=== PATIENT | male | born 1995 | race Caucasian/White ===

== ENCOUNTER 2017-11-03 13:02 | Emergency (ER) | payer OTHER ==
[2017-11-03] MEDS ORDERED: Lidocaine 1% 20 ML MDV INJECT ONE ×2 (13:04→13:21)
--- NOTE | 2017-11-03 13:07 | EDM.PDOC ---
ED HPI GENERAL MEDICAL PROBLEM - General Stated Complaint: CUT TO LIP WORK RELATED Time Seen by Provider: 11/03/17 13:05 Source of Information: Reports: Patient History Limitations: Reports: No Limitations - History of Present Illness INITIAL COMMENTS - FREE TEXT/NARRATIVE: HISTORY AND PHYSICAL: History of present illness: Patient is a 22-year-old male who presents to the emergency room today with complaints of facial/head injury after being hit with a PVC pipe. He said while at work there was a PVC pipe that came towards him and did hit him in the face. He does have a laceration to the left upper lip increase of the left knee are. He denies any loss of consciousness. Change in vision, headache, near syncopal, nausea, vomiting. Besides the face he did not have any other extremity or body part involvement. Review of systems: As per history of present illness and below otherwise all systems reviewed and negative. Past medical history: As per history of present illness and as reviewed below otherwise noncontributory. Surgical history: As per history of present illness and as reviewed below otherwise noncontributory. Social history: No reported history of drug or alcohol abuse. Family history: As per history of present illness and as reviewed below otherwise noncontributory. Physical exam: General: Well-developed and well-nourished 22-year-old male. Alert and oriented. Nontoxic appearing and in no acute distress. HEENT: Atraumatic, normocephalic, pupils equal and reactive bilaterally, negative for conjunctival pallor or scleral icterus, mucous membranes moist, throat clear, neck supple, nontender, trachea midline. No drooling or trismus noted. No meningeal signs Lungs: Clear to auscultation, breath sounds equal bilaterally, chest nontender. Heart: S1S2, regular rate and rhythm without overt murmur Abdomen: Soft, nondistended, nontender. Negative for masses or hepatosplenomegaly. Negative for costovertebral tenderness. Pelvis: Stable nontender. Genitourinary: Deferred. Rectal: Deferred. Skin: 2 cm laceration to the left upper lip that does extend 0.2cm across the [place]. This laceration does not extend into the oral mucosa area and he does have an abrasion to the left naris fold which is nonsuturable. No lesions or rashes noted. Extremities: Atraumatic, negative for cords or calf pain. Neurovascular unremarkable. Neuro: Awake, alert, oriented. Cranial nerves II through XII unremarkable. Cerebellum unremarkable. Motor and sensory unremarkable throughout. Exam nonfocal. Notes: Area was anesthetized with 1% lidocaine. It was cleansed with chlorhexidine and normal saline. Wound was explored. No foreign body or debris noted. It does not extend into the inner oral mucosa. The laceration does extend into the vermilion border just slightly. I was able to match the vermilion border with 5- 0 nylon. #3 interrupted sutures were placed. Patient tolerated well. Bacitracin ointment applied. Wound care was addressed. Signs and symptoms of infection were reviewed and discussed. Head and maxillofacial CT results are pending. CT of the face and head show no acute intracranial findings. There is a mildly displaced fracture of the left maxillary frontal process and a nondisplaced fracture of the left nasal bone. Dr Victor was consulted on this case for need for close follow up. Dr. Severino was consult did on this case and would like to see the patient in 7- 10 days. I did share this with the patient and we discussed signs and symptoms that would prompt him to return to the emergency room which includes but is not limited to fever, chills, pain and pressure. We'll place him on Augmentin twice a day 10 days. [place] as needed for pain. Diagnostics: Head CT, Maxillofacial CT Therapeutics: Lidocaine, wound care, bacitracin Impression: Head injury Facial laceration Facial bone fracture Plan: 1. Please keep the area clean and dry. Stitches to be removed in 7-10 days. Continue to monitor for signs of infection. 2. Tylenol and/or ibuprofen as needed for pain management. [place] as needed for moderate to severe pain. This medication may cause drowsiness a do not take it while driving or needing to be functioning outside of the house. 3. Review the head injury instructions that were reviewed with you and are printed in your discharge packet 4. As we discussed you do have facial fractures which you need to avoid blowing your nose, sneezing, or anything that would cause increased pressure to the base /sinus area. This does cause increased risk for infection. Take your antibiotic as directed. You do need to follow-up with the plastic surgeon, Dr. Mechelle Victor. Valente would like to see you in the next 7-10 days. 5. Follow-up with your primary care provider in the next 1-2 days. Return to the ED as needed and as discussed. Definitive disposition and diagnosis as appropriate pending reevaluation and review of above. face Pain Score (Numeric/FACES): 3 - Related Data Allergies Allergy/AdvReac Type Severity Reaction Status Date / Time No Known Allergies Allergy Verified 11/03/17 13:05 Home Meds: Home Meds Dextroamphetamine/Amphetamine [Adderall] 54 mg PO DAILY 11/03/17 [History] ED ROS GENERAL - Review of Systems Review Of Systems: ROS reveals no pertinent complaints other than HPI. ED EXAM, HEAD INJURY - Physical Exam Exam: See Below (See dictation) Course - Vital Signs Last Recorded V/S: Last Vital Signs Temp 97.1 F 11/03/17 13:06 Pulse 77 11/03/17 13:06 Resp 18 11/03/17 13:06 BP 138/91 H 11/03/17 13:06 Pulse Ox 99 11/03/17 13:06 - Orders/Labs/Meds Meds: Medications Discontinued Medications Generic Name Dose Route Start Last Admin Trade Name Freq PRN Reason Stop Dose Admin Lidocaine HCl 50 ml 11/03/17 13:21 11/03/17 13:22 Xylocaine 1% INJECT 11/03/17 13:22 50 ml ONETIME ONE Administration Departure - Departure Time of Disposition: 14:53 Disposition: Home, Self-Care 01 Clinical Impression: Head injury Qualifiers: Encounter type: initial encounter Qualified Code(s): S09.90XA - Unspecified injury of head, initial encounter Facial laceration Qualifiers: Encounter type: initial encounter Qualified Code(s): S01.81XA - Laceration without foreign body of other part of head, initial encounter Facial fracture Qualifiers: Encounter type: initial encounter Facial bone/location: nasal bone Fracture type: closed Qualified Code(s): S02.2XXA - Fracture of nasal bones, initial encounter for closed fracture - Discharge Information Instructions: Head Injury, Adult, [id number], Facial Laceration, [id number] Additional Instructions: The following information is given to patients seen in the emergency department who are being discharged to home. This information is to outline your options for follow-up care. We provide all patients seen in our emergency department with a follow-up referral. The need for follow-up, as well as the timing and circumstances, are variable depending upon the specifics of your emergency department visit. If you don't have a primary care physician on staff, we will provide you with a referral. We always advise you to contact your personal physician following an emergency department visit to inform them of the circumstance of the visit and for follow-up with them and/or the need for any referrals to a consulting specialist. The emergency department will also refer you to a specialist when appropriate. This referral assures that you have the opportunity for follow-up care with a specialist. All of these measure are taken in an effort to provide you with optimal care, which includes your follow-up. Under all circumstances we always encourage you to contact your private physician who remains a resource for coordinating your care. When calling for follow-up care, please make the office aware that this follow-up is from your recent emergency room visit. If for any reason you are refused follow-up, please contact the [facility] Emergency Department at and asked to speak to the emergency department charge nurse. [facility] Specialty Care - Plastic Surgery Professional Building [address] [place] [address], [address] [place] [address] 1. Please keep the area clean and dry. Stitches to be removed in 7-10 days. Continue to monitor for signs of infection. 2. Tylenol and/or ibuprofen as needed for pain management. [place] as needed for moderate to severe pain. This medication may cause drowsiness a do not take it while driving or needing to be functioning outside of the house. 3. Review the head injury instructions that were reviewed with you and are printed in your discharge packet 4. As we discussed you do have facial fractures which you need to avoid blowing your nose, sneezing, or anything that would cause increased pressure to the base /sinus area. This does cause increased risk for infection. Take your antibiotic as directed. You do need to follow-up with the plastic surgeon, Dr. Mechelle Victor. Valente would like to see you in the next 7-10 days. 5. Follow-up with your primary care provider in the next 1-2 days. Return to the ED as needed and as discussed..
[2017-11-03] MEDS ORDERED: Lidocaine 1% 50 ML MDV ONE (13:13)
--- NOTE | 2017-11-03 14:28 | CT ---
EXAMINATION: Non contrast CT head and facial bones. Coronal and sagittal reformats. HISTORY: Pain FINDINGS: No evidence of intra or extra axial hemorrhage, mass, midline shift, hydrocephalus or edema. No hyp oattenuation changes in the major vascular territories to suggest acute infarct. No abnormal intracranial calcifications are detected. No evidence of substantial vascular calcificat ions. The paranasal sinuses and mastoid air cells are well aerated without substantial findings. Pituitary fossa appears unremarkable. The calvarium is intact. No evidence of skull fracture. The left maxillary frontal process is fractured and mildly displaced. Nondisplaced fracture of the le ft nasal bone. The nasal septum is an mildly deviated to the right. The maxillary orbital mann are i ntact. The zygomatic arches and pterygoid plates are intact. The mandibles and temporomandibular join ts are preserved. The orbits and globes are symmetric. IMPRESSION: 1. No acute intracranial findings. 2. Mildly displaced fracture of the left maxillary frontal process and a nondisplaced fracture of the left nasal bone.
== END 2017-11-03 15:04 | disposition home or self-care (01) ==
LOC: MW.ED 13:02
DX: S02.2XXA Fracture of nasal bones, initial encounter for closed fracture (principal); S02.40DA Maxillary fracture, left side, initial encounter for closed fracture; S01.511A Laceration without foreign body of lip, initial encounter; S09.90XA Unspecified injury of head, initial encounter; Y99.0 Civilian activity done for income or pay; W22.8XXA Striking against or struck by other objects, initial encounter
CPT/HCPCS: 70450; 70450-26; 70486; 70486-26; 99283-25